=== PATIENT | male | born 1945 | race Caucasian/White ===

== ENCOUNTER 2016-12-01 19:19 | Observation (INO) | payer OTHER ==
--- NOTE | 2016-12-01 19:26 | EDPHY ---
H & P Time Seen by Provider: 12/01/16 19:24 HPI/ROS: CHIEF COMPLAINT: Fall, and altered mental status HISTORY OF PRESENT ILLNESS: 71-year-old man comes in by paramedics. His was walking on the stairs in front of him and made a turn into another room when she heard a thud behind her and found him on the ground lying on his back and was unresponsive. Patient says he thinks he tripped on the stairs and landed on his back. Stairs were carpet and the floor was wood with a carpet over it. No seizure activity. Patient currently denies chest pain shortness of breath headache neck pain weakness or numbness in extremities. Admits to alcohol. REVIEW OF SYSTEMS: Eye: no change in vision ENT: No nose bleed after the fall Cardiac: no chest pain Pulmonary: Not currently short of breath Abdomen: no vomiting or abdominal pain Musculoskeletal: no back pain or neck pain Skin: No lacerations Neuro: no headache Constitutional: no fever or recent illness : no urinary symptoms A comprehensive 10 point review of systems is otherwise negative aside from elements mentioned in the history of present illness. PAST MEDICAL HISTORY: Alcoholism, tonsillectomy, hypertension Social history: , here with General Appearance: Sleepy but easily awakens to voice, cooperative. Slurred speech. Eyes: No scleral icterus. ENT, Mouth: Normal mucous membranes. No tongue laceration or abrasion. Respiratory: Normal respiratory effort, breath sounds equal, lungs are clear to auscultation. Cardiovascular: Regular rate and rhythm. Gastrointestinal: Abdomen is soft and non tender. Neurological: Follows commands. Opens eyes spontaneously. Slurred speech. Face symmetric, normal movement and sensation in all extremities. Skin: Left hand abrasion. Musculoskeletal: No cervical thoracic or lumbar spine point tenderness. No extremity deformity or tenderness. Psychiatric: Not agitated. Emergency Department course/MDM: Likely mechanical fall with head trauma causing brief loss of consciousness. I think syncope would be less likely. EKG, labs to include ethanol, head and cervical spine CT. 2000: Results including CT scan reviewed with the patient and with his on PACs. Admission for observation given concurrent alcohol intoxication and abnormal neurologic examination with intracranial bleeding. Discussed with on- call neurosurgeon. Constitutional: Initial Vital Signs Temperature (C) 36.2 C 12/01/16 19:27 Heart Rate 73 12/01/16 19:27 Respiratory Rate 16 12/01/16 19:27 Blood Pressure 139/98 H 12/01/16 19:27 O2 Sat (%) 93 12/01/16 19:27 O2 Delivery Mode Room Air Allergies/Adverse Reactions: No Known Allergies Allergy (Unverified 05/02/10 14:44) Home Medications: Medication Instructions Recorded Avodart 05/02/10 Flomax 05/02/10 Lisinopril 12/01/16 Medical Decision Making - Diagnostics EKG Interpretation: 12-lead EKG interpreted by me; official reading is in trace master. My interpretation is is sinus rhythm rate 69. No ischemic changes. Imaging Results: Imaging Impressions Cervical Spine CT 12/01/16 19:24 Impression: 1. No definite fracture. 2. Multilevel moderate to severe degenerative disk disease and moderate to severe bilateral facet arthropathy resulting in multilevel moderate to severe bilateral neural foraminal stenosis and mild to moderate central canal stenosis , worse at C4-C5 and C6-C7, as described above. 3. If there is persistent pain or neurological deficit, recommend MR cervical spine and consider flexion and extension views, if clinically indicated. Findings and recommendations discussed with Emergency Department physician, Aldo Stein, at 2000 hours, 12/01/2016. Final report concurs with initial preliminary interpretation. Head CT 12/01/16 19:24 Impression: 1. Multiple subarachnoid hemorrhages bilateral frontal, left parietooccipital, and right temporal lobes. 2. No epidural or subdural hematoma. 3. No midline shift or herniation. Findings discussed with Emergency Department physician, Aldo Stein, at 2000 hours, 12/01/2016. Final report concurs with initial preliminary interpretation. CT reviewed with Dr. Tam Crook at 8:05 p.m. shows traumatic subarachnoid hemorrhage in both frontal, right frontal, left parietal, negative cspine. Differential Diagnosis: Differential diagnosis considered for head injury including but not limited to concussion, skull fracture, intraparenchymal contusion, subarachnoid, subdural and epidural hematoma. Consult/Admit Bed Type: [facility] 2007 - Data Points Laboratory Results: Laboratory Results 12/01/16 19:27 12/01/16 19:27 12/01/16 12/01/16 12/01/16 19:27 19:27 19:27 WBC 8.34 10^3/uL 10^3/uL (3.80-9.50) RBC 4.97 10^6/uL 10^6/uL (4.40-6.38) Hgb 16.2 g/dL g/dL (13.7-17.5) Hct 47.5 % % (40.0-51.0) MCV 95.6 fL fL (81.5-99.8) MCH 32.6 pg pg (27.9-34.1) MCHC 34.1 g/dL g/dL (32.4-36.7) RDW 12.6 % % (11.5-15.2) Plt Count 269 10^3/uL 10^3/uL (150-400) MPV 9.6 fL fL (8.7-11.7) Neut % (Auto) 57.9 % % (39.3-74.2) Lymph % (Auto) 28.7 % % (15.0-45.0) [place] % (Auto) 10.8 % % (4.5-13.0) Eos % (Auto) 1.2 % % (0.6-7.6) Baso % (Auto) 0.6 % % (0.3-1.7) Nucleat RBC Rel Count 0.0 % % (0.0-0.2) Absolute Neuts (auto) 4.83 10^3/uL 10^3/uL (1.70-6.50) Absolute Lymphs (auto) 2.39 10^3/uL 10^3/uL (1.00-3.00) Absolute Monos (auto) 0.90 10^3/uL H 10^3/uL (0.30-0.80) Absolute Eos (auto) 0.10 10^3/uL 10^3/uL (0.03-0.40) Absolute Basos (auto) 0.05 10^3/uL 10^3/uL (0.02-0.10) Absolute Nucleated RBC 0.00 10^3/uL 10^3/uL (0-0.01) Immature Gran % 0.8 % % (0.0-1.1) Immature Gran # 0.07 10^3/uL 10^3/uL (0.00-0.10) PT 13.1 SEC SEC (12.0-15.0) INR 1.00 (0.83-1.16) APTT 25.8 SEC SEC (23.0-38.0) Sodium 143 mEq/L mEq/L (134-144) Potassium 3.9 mEq/L mEq/L (3.5-5.2) Chloride 108 mEq/L mEq/L (97-110) Carbon Dioxide 22 mEq/l mEq/l (22-31) Anion Gap 13 mEq/L mEq/L (8-16) BUN 25 mg/dL H mg/dL (7-23) Creatinine 0.7 mg/dL mg/dL (0.7-1.3) Estimated GFR > 60 Glucose 97 mg/dL mg/dL (70-100) Calcium 9.0 mg/dL mg/dL (8.5-10.4) Ethyl Alcohol 219 mg/dL H mg/dL (0-10) Departure - Departure Disposition: [facility] Inpatient Acute Clinical Impression: Alcohol intoxication Qualifiers: Complication of substance-induced condition: uncomplicated Qualified Code(s): F10.120 - Alcohol abuse with intoxication, uncomplicated Traumatic subarachnoid hemorrhage Qualifiers: Encounter type: initial encounter Loss of consciousness presence/duration: with LOC of 31 min - 59 min Qualified Code(s): S06.6X2A - Traumatic subarachnoid hemorrhage with loss of consciousness of 31 minutes to 59 minutes, initial encounter Condition: Serious
--- NOTE | 2016-12-01 19:29 | CPEKG ---
Heart Rate: 69 RR Interval: 870 P-R Interval: 208 QRSD Interval: 96 QT Interval: 400 QTC Interval: 429 P [place]: 15 QRS [place]: 14 T Wave [place]: 12 EKG Severity - NORMAL ECG - EKG Impression: SINUS RHYTHM Electronically Signed By: Aldo Stein 01-Dec-2016 19:29:38
[2016-12-01 19:30] LABS: % IMMATURE GRANULYOCYTES 0.8 % (0.0-1.1); ABSOLUTE IMMATURE GRANULOCYTES 0.07 10^3/uL (0.00-0.10); ADD DIFF? NO; ADD MORPH? NO; ADD SCAN? NO; ATYPICAL LYMPHOCYTE FLAG 10 (0-99); FRAGMENT RBC FLAG 0 (0-99); HEMATOCRIT 47.5 % (40.0-51.0); HEMOGLOBIN 16.2 g/dL (13.7-17.5); LEFT SHIFT FLG 0 (0-99); LIPEMIA HEMOLYSIS FLAG 90 (0-99); MEAN CELL HEMOGLOBIN 32.6 pg (27.9-34.1); MEAN CELL HEMOGLOBIN CONCENTR. 34.1 g/dL (32.4-36.7); MEAN CELL VOLUME 95.6 fL (81.5-99.8); MEAN PLATELET VOLUME 9.6 fL (8.7-11.7); PLATELET CLUMPS FLAG 0 (0-99); PLATELET COUNT 269 10^3/uL (150-400); RED BLOOD CELL COUNT 4.97 10^6/uL (4.40-6.38); RED CELL DISTRIBUTION WIDTH 12.6 % (11.5-15.2)
[2016-12-01 19:46] LABS: ANION GAP 13 mEq/L (8-16); CARBON DIOXIDE 22 mEq/l (22-31); CHLORIDE 108 mEq/L (97-110); CREATININE 0.7 mg/dL (0.7-1.3); ETHANOL SERUM 219 mg/dL (0-10); GLOMERULAR FILTRATION RATE > 60; GLUCOSE 97 mg/dL (70-100); POTASSIUM 3.9 mEq/L (3.5-5.2); SODIUM 143 mEq/L (134-144)
[2016-12-01 20:08] LABS: PROTIME(PATIENT) 13.1 SEC (12.0-15.0)
[2016-12-01 20:09] LABS: APTT 25.8 SEC (23.0-38.0)
[2016-12-01] MEDS ORDERED: ACETAMINOPHEN 325 MG TAB PO PRN (20:49)
[2016-12-01] MEDS ORDERED: ONDANSETRON 4 MG/2 ML VIAL IVP PRN (20:49)
[2016-12-01] MEDS ORDERED: ONDANSETRON DISINTEGRATING 4 MG TAB PO PRN (20:49)
[2016-12-01] MEDS ORDERED: IBUPROFEN 600 MG TAB PO PRN (20:53)
--- NOTE | 2016-12-01 21:24 | GHP ---
[f rep st] HISTORY AND PHYSICAL DATE OF ADMISSION: 12/01/2016 TIME SEEN: The patient was seen and evaluated at approximately 8:45 p.m. in the [facility] Emergency Department. HISTORY OF PRESENT ILLNESS: The patient is a 71-year-old man, who has a history of hypertension, who apparently was walking on the stairs with his in front of him when he fell down. It is not clear how many stairs he fell down , but he did have a loss of consciousness. It sounds like he may have tripped. He was drinking some alcohol earlier today. He presented to the [facility] Emergency Department with a GCS of 15, and no neurologic deficits. A head CT was obtained, which shows a very small amount of traumatic subarachnoid hemorrhage in the bilateral frontal poles, and a small bit in a single left parietal sulcus. There is no mass effect or shift. Given his intoxication, the ER felt he should be admitted. REVIEW OF SYSTEMS: A 10-point review of systems is negative other than that described in HPI. PAST MEDICAL HISTORY: 1. Alcoholism. 2. Tonsillectomy. 3. Hypertension. SOCIAL HISTORY: Patient is . He is here with his . He lives in [place]. He does not smoke. He admits to drinking 2-3 drinks of beer or wine per day. 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 FAMILY HISTORY: Positive for a stroke in the mother. PHYSICAL EXAM: VITAL SIGNS: Currently, he has normal stable vital signs. GENERAL APPEARANCE: He is awake, alert, and oriented x3. HEENT: Pupils are equal, round, and react to light. Extraocular movements are intact. Face symmetric. Tongue is midline. Palate is symmetric. NEUROLOGIC: The speech is clear and fluent. He has full 5/5 strength in all muscle groups in all limbs. He has no pronator drift. The sensation is intact. Deep tendon reflexes are normal. There is no dysmetria or dysdiadochokinesia. IMAGING: See HPI. LABORATORY DATA: The white count is 8.3, hemoglobin 16.2, hematocrit 47.5, platelet count is 269,000. Sodium is 143, potassium 3.9, BUN 25, creatinine 0.7 , glucose is 97. The blood alcohol level was 219. ASSESSMENT AND PLAN: The patient is a 71-year-old man who presented to the emergency room after a fall, with a tiny amount of traumatic subarachnoid hemorrhage. He is also intoxicated. He will be admitted to observation overnight to the general care floor. He can be discharged home tomorrow morning. Unless he has any further neurologic signs or symptoms, I would not expect to get any further scans. He does not need any further neurosurgical followup. /[id number]/MODL MTDD
[2016-12-02 05:27] VITALS: TEMP 98.7
--- NOTE | 2016-12-02 06:44 | NEUSURGPN ---
Assessment/Plan: Assessment: 71 yo male that is s/p fall with with small bifrontal TSAH Plan: -pt neuro intact but continued LAKE -CT head this am and if looks ok may be able to dc later this am after PT/OT/ST sees -per Dr Henry-ok to continue babyASA -PT/OT/ST to see pt and hopefully clear for home -call NS with any changes or issues -take medications as directed -d/w Dr Henry Subjective: No new complaints or concerns. Pt with continued LAKE. No neck/chest/abd or gu complaints. No f/c/n/v/d. Objective: AAO x 3, PERRLA/EOMI no droop CN 2-12 grossly intact +lt touch 5/5 BUE/BLE = Neuro Check Frequency: per routine Urinary Catheter in Place: No - Physician Discussed Patient with Dr.: Henry Patient Seen by Dr.: Henry Neurosurgery Physical Exam - Vitals, I&O, Labs I and O 12/01/16 12/02/16 12/03/16 05:59 05:59 05:59 Output Total 300 Balance -300 Weight 86.7 kg Output: Urine (ml) 300 Urinal 250 Other: Number of Voids 1 Vital Signs Temp Pulse Resp BP Pulse Ox 37.1 C 88 17 147/88 H 94 12/01/16 23:00 12/02/16 05:00 12/02/16 05:00 12/02/16 05:00 12/02/16 05:00 ICD10 Worksheet Patient Problems: Problems Problem Status Onset Alcohol intoxication Acute Traumatic subarachnoid hemorrhage Acute
--- NOTE | 2016-12-02 11:31 | CPEKG ---
Heart Rate: 67 RR Interval: 896 P-R Interval: 184 QRSD Interval: 94 QT Interval: 392 QTC Interval: 414 P [place]: 38 QRS [place]: 31 T Wave [place]: 3 EKG Severity - NORMAL ECG - EKG Impression: SINUS RHYTHM EKG Impression: CONSIDER PREVIOUS INFERIOR OR. EKG Impression: COMPARED WITH 12/01/2016, NO SIGNIFICANT CHANGE Electronically Signed By: Carlene Curtis 02-Dec-2016 16:39:45
[2016-12-02 12:17] VITALS: BP 161/90; RESP 15
[2016-12-02 13:21] VITALS: PULSE 65; O2SAT 97
[2016-12-03] MEDS ORDERED: HEPARIN 5,000 UNIT/0.5 ML SYR SC SCH (22:00)
== END 2016-12-02 13:06 | disposition home or self-care (01) ==
LOC: EDUNIT# → F2N 22:40
PROVIDERS: ADMIT Neurological Surgery; ATTEND Neurological Surgery
DX: S06.6X2A Traumatic subarachnoid hemorrhage with loss of consciousness of 31 minutes to 59 minutes, initial encounter (principal); M50.321 Other cervical disc degeneration at C4-C5 level; M50.322 Other cervical disc degeneration at C5-C6 level; M50.323 Other cervical disc degeneration at C6-C7 level; M50.33 Other cervical disc degeneration, cervicothoracic region; M99.71 Connective tissue and disc stenosis of intervertebral foramina of cervical region; M48.02 Spinal stenosis, cervical region; I10 Essential (primary) hypertension; F10.120 Alcohol abuse with intoxication, uncomplicated; W10.9XXA Fall (on) (from) unspecified stairs and steps, initial encounter; Z82.3 Family history of stroke
CPT/HCPCS: 70450; 72125; 92523; 93005; 97161; 97165; 99408; G0378; G8978; G8979; G8980; G8987; G8988; G8989; G9165; G9166; G0397; G0480

== ENCOUNTER 2016-12-10 16:32 | Emergency (ER) | payer OTHER ==
--- NOTE | 2016-12-10 17:30 | EDPHY ---
H & P Stated Complaint: head inj 9 days ago/had a bleed/having increasing wright/fatigue Time Seen by Provider: 12/10/16 17:29 Source: Patient - Personal History Current Tetanus/Diphtheria Vaccine: Yes - Medical/Surgical History Hx Asthma: No Hx Chronic Respiratory Disease: No Hx Diabetes: No Hx Cardiac Disease: No Hx Renal Disease: No Hx Cirrhosis: No Hx Alcoholism: Yes Hx HIV/AIDS: No Hx Splenectomy or Spleen Trauma: No Other PMH: PSHx: tonsillectomy. PMHx: hypertension, EtOH, [place] - wears hearing aids. Enlarged prostate - Social History Smoking Status: Former smoker Constitutional: Initial Vital Signs Temperature (C) 36.6 C 12/10/16 16:41 Heart Rate 67 12/10/16 16:41 Respiratory Rate 18 12/10/16 16:41 Blood Pressure 136/87 H 12/10/16 16:41 O2 Sat (%) 96 12/10/16 16:41 O2 Delivery Mode Room Air Allergies/Adverse Reactions: No Known Allergies Allergy (Verified 12/10/16 16:40) Home Medications: Medication Instructions Recorded Aspirin EC [Aspirin EC 81 mg (*)] 81 mg PO DAILY 12/01/16 Dutasteride 0.5 mg PO DAILY 12/01/16 Herbals/Supplements -Info Only 1 ea PO DAILY 12/01/16 Lisinopril/Hctz 10/12.5 mg 1 ea PO DAILY 12/01/16 [Zestoretic/Prinzide 10/12.5MG (*)] Melatonin [Melatonin 3 MG (*)] 3 mg PO HS PRN 12/01/16 Tamsulosin HCl 0.4 mg PO DAILY 12/01/16 Acetaminophen [Tylenol 325mg (*)] 650 mg PO Q4HRS PRN #0 tab 12/02/16 Medical Decision Making - Diagnostics Imaging: Discussed imaging studies w/ financial investment manager Radiologist ED Course/Re-evaluation: CHIEF COMPLAINT: Worsening headache HISTORY OF PRESENT ILLNESS: The patient is a 71-year-old male, that had traumatic subarachnoid hemorrhage 12/01, who comes to the emergency department for acute headache. The patient has felt fine for the past four days. Today the patient began to feel lethargic. He has no appetite. His headache started to worsen over the weekend about 5 days after the original injury. When he was discharged from hospital he did not actually have a headache. He denies any neurologic deficits. He states that today his headache is slightly better than it was the last couple days but still persistent. This patient is not on blood thinners but does take an 81 mg aspirin REVIEW OF SYSTEMS: A 10 point review of systems was performed and is negative with the exception of the elements mentioned in the history of present illness. PHYSICAL EXAM: HR, BP, O2 Sat, RR. Temp noted General Appearance: Alert, well hydrated, appropriate, and non-toxic appearing. Head: Atraumatic without scalp tenderness or obvious injury Eyes: Pupils equal, round, reactive to light and accommodation, EOMI, no trauma , no injection. Ears: Clear bilaterally, no perforation, normal landmarks Nose: Atraumatic, no rhinorrhea, clear. Throat: There is no erythema or exudates, no lesions, normal tonsils, mucus membranes moist. Neck: Supple, 2+ carotid upstroke, nontender, no lymphadenopathy. Respiratory: No retractions, no distress, no wheezes, and no accessory muscle use. Lungs are clear to auscultation bilaterally. Cardiovascular: Regular rate and rhythm, no murmurs, rubs, or gallops. Bilateral carotid, radial, dorsalis pedis, and posterior tibial pulses intact. Good capillary refill all extremities. Gastrointestinal: Abdomen is soft, nontender, non-distended, no masses, no rebound, no guarding, no peritoneal signs. Musculoskeletal: Normal active ROM of all extremities, atraumatic. Neurological: Alert, appropriate, and interactive. The patient has normal DTRs and non-focal cranial nerves, motor, sensory, and cerebellar exam. Skin: No rashes, good turgor, no nodules on palpation. Past medical history: Noncontributory outside of the subarachnoid hemorrhage which was traumatic mentioned above Past surgical history: Noncontributory Family history: Noncontributory Social history: , does not abuse tobacco drugs or alcohol. DIAGNOSTICS/PROCEDURES/CRITICAL CARE TIME: Study: CT of the brain without contrast Indication: known subarachnoid hemorrhage with worsening headache Results: CT scan of the brain was obtained. The results of the study are: hypodensity. No changes. The study was read by the radiologist, Dr. Nelson. I viewed the images myself on the PACS system. DIFFERENTIAL DIAGNOSIS: MEDICAL DECISION MAKING: Patient with recent traumatic subarachnoid hemorrhage presents to the ED with worsening headache of several days. He has no neurologic deficits. He has no nausea vomiting. He states he may have slight dizziness at times but that it has been persistent since the event. He denies any photophobia. He denies any neurologic problems. Plan for CT without contrast. CT imaging was called to me by the radiologist, Dr. Nelson. CT head shows hypodensity, no changes. Patient is safe for discharge home. I discussed findings. Patient was given strict return precautions. - Data Points Laboratory Results: Laboratory Results 12/10/16 18:02 12/10/16 18:02 12/10/16 12/10/16 18:02 18:02 WBC 11.88 10^3/uL H 10^3/uL (3.80-9.50) RBC 5.01 10^6/uL 10^6/uL (4.40-6.38) Hgb 16.4 g/dL g/dL (13.7-17.5) Hct 45.8 % % (40.0-51.0) MCV 91.4 fL fL (81.5-99.8) MCH 32.7 pg pg (27.9-34.1) MCHC 35.8 g/dL g/dL (32.4-36.7) RDW 11.9 % % (11.5-15.2) Plt Count 277 10^3/uL 10^3/uL (150-400) MPV 9.5 fL fL (8.7-11.7) Neut % (Auto) 74.7 % H % (39.3-74.2) Lymph % (Auto) 12.0 % L % (15.0-45.0) [place] % (Auto) 12.2 % % (4.5-13.0) Eos % (Auto) 0.2 % L % (0.6-7.6) Baso % (Auto) 0.3 % % (0.3-1.7) Nucleat RBC Rel Count 0.0 % % (0.0-0.2) Absolute Neuts (auto) 8.88 10^3/uL H 10^3/uL (1.70-6.50) Absolute Lymphs (auto) 1.43 10^3/uL 10^3/uL (1.00-3.00) Absolute Monos (auto) 1.45 10^3/uL H 10^3/uL (0.30-0.80) Absolute Eos (auto) 0.02 10^3/uL L 10^3/uL (0.03-0.40) Absolute Basos (auto) 0.03 10^3/uL 10^3/uL (0.02-0.10) Absolute Nucleated RBC 0.00 10^3/uL 10^3/uL (0-0.01) Immature Gran % 0.6 % % (0.0-1.1) Immature Gran # 0.07 10^3/uL 10^3/uL (0.00-0.10) Sodium 133 mEq/L L mEq/L (134-144) Potassium 4.1 mEq/L mEq/L (3.5-5.2) Chloride 101 mEq/L mEq/L (97-110) Carbon Dioxide 21 mEq/l L mEq/l (22-31) Anion Gap 11 mEq/L mEq/L (8-16) BUN 27 mg/dL H mg/dL (7-23) Creatinine 0.7 mg/dL mg/dL (0.7-1.3) Estimated GFR > 60 Glucose 98 mg/dL mg/dL (70-100) Calcium 9.4 mg/dL mg/dL (8.5-10.4) Departure - Departure Disposition: Home, Routine, Self-Care Clinical Impression: Post concussion syndrome Headache Qualifiers: Headache type: post-traumatic Headache chronicity pattern: acute headache Intractability: not intractable Qualified Code(s): G44.319 - Acute post- traumatic headache, not intractable Condition: Good Instructions: Post Concussion Syndrome (ED) Additional Instructions: Followup with your primary care physician as needed. Return to the emergency department with new or worsening symptoms. Referrals: Seda Macario MD [Primary Care Provider] - As per Instructions Report Scribed for: Benson Magana Report Scribed by: Irais Uriarte Date of Report: 12/10/16 Time of Report: 18:08
[2016-12-10 18:11] LABS: % IMMATURE GRANULYOCYTES 0.6 % (0.0-1.1); ABSOLUTE IMMATURE GRANULOCYTES 0.07 10^3/uL (0.00-0.10); ADD DIFF? NO; ADD MORPH? NO; ADD SCAN? NO; ATYPICAL LYMPHOCYTE FLAG 0 (0-99); FRAGMENT RBC FLAG 0 (0-99); HEMATOCRIT 45.8 % (40.0-51.0); HEMOGLOBIN 16.4 g/dL (13.7-17.5); LEFT SHIFT FLG 0 (0-99); LIPEMIA HEMOLYSIS FLAG 90 (0-99); MEAN CELL HEMOGLOBIN 32.7 pg (27.9-34.1); MEAN CELL HEMOGLOBIN CONCENTR. 35.8 g/dL (32.4-36.7); MEAN CELL VOLUME 91.4 fL (81.5-99.8); MEAN PLATELET VOLUME 9.5 fL (8.7-11.7); PLATELET CLUMPS FLAG 10 (0-99); PLATELET COUNT 277 10^3/uL (150-400); RED BLOOD CELL COUNT 5.01 10^6/uL (4.40-6.38); RED CELL DISTRIBUTION WIDTH 11.9 % (11.5-15.2)
[2016-12-10 18:27] VITALS: PULSE 56; RESP 16
[2016-12-10 18:38] LABS: ANION GAP 11 mEq/L (8-16); CALCIUM 9.4 mg/dL (8.5-10.4); CARBON DIOXIDE 21 mEq/l (22-31); CHLORIDE 101 mEq/L (97-110); CREATININE 0.7 mg/dL (0.7-1.3); GLOMERULAR FILTRATION RATE > 60; GLUCOSE 98 mg/dL (70-100); POTASSIUM 4.1 mEq/L (3.5-5.2); SODIUM 133 mEq/L (134-144)
[2016-12-10 19:51] VITALS: BP 156/98; TEMP 98.1; O2SAT 96
== END 2016-12-10 19:53 | disposition home or self-care (01) ==
DX: G44.319 Acute post-traumatic headache, not intractable (principal); F07.81 Postconcussional syndrome; Z79.82 Long term (current) use of aspirin; Z87.891 Personal history of nicotine dependence

== ENCOUNTER → 2018-02-25 | Outpatient (CLI) | payer OTHER | DX: M43.17 Spondylolisthesis, lumbosacral region (principal) ==

== ENCOUNTER → 2018-03-03 | Outpatient (CLI) | payer OTHER | LOC: FIMAGING 18:47 | PROVIDERS: ATTEND Internal Medicine | DX: M51.36 Other intervertebral disc degeneration, lumbar region (principal); M48.061 Spinal stenosis, lumbar region without neurogenic claudication; M43.16 Spondylolisthesis, lumbar region; M47.896 Other spondylosis, lumbar region ==